=== PATIENT | female | born 1980 | race Caucasian/White ===

== ENCOUNTER 2016-07-30 09:01 | Emergency (ER) | payer OTHER ==
[~2016-07-30 09:01] MED LIST: NO MEDICATIONS; PRENATAL1 TA1 PO
[2016-07-30 11:01] LABS: URINE APPEARANCE CLEAR; URINE COLOR YELLOW
[2016-07-30 11:02] LABS: MICRO INDICATED? YES; URINE BILIRUBIN NEG (NEG); URINE BLOOD NEG (NEG); URINE GLUCOSE NORM (NEG); URINE KETONE NEG (NEG); URINE LEUKOCYTE ESTERASE 2+ (NEG); URINE NITRATE NEG (NEG); URINE PROTEIN NEG (NEG); URINE UROBILINOGEN NORM (NEG)
[2016-07-30 11:06] LABS: CULTURE INDICATED? YES; URINE BACTERIA 1+ (NEG); URINE RBC NEG /[HPF] (0-2); URINE SQUAMOUS EPITHELIAL CELL MODERATE /[HPF]; URINE WBC 0-2 /[HPF] (0-5)
== END 2016-07-30 11:22 | disposition home or self-care (01) ==
LOC: SED 09:01
PROVIDERS: Emergency Medicine
DX: S39.012A Strain of muscle, fascia and tendon of lower back, initial encounter (principal); F17.200 Nicotine dependence, unspecified, uncomplicated; X50.0XXA Overexertion from strenuous movement or load, initial encounter; Y92.009 Unspecified place in unspecified non-institutional (private) residence as the place of occurrence of the external cause
CPT/HCPCS: 81003; 84703; 87086; 99283